=== PATIENT | male | born 1960 | race Caucasian/White ===

== ENCOUNTER 2023-11-03 10:35 | Inpatient (IN) | payer BC ==
[~2023-11-03] VITALS: Ht 177.8 cm; Wt 87.6 kg
[2023-11-03] VITALS (12 sets, daily range): BP systolic 94–155; BP diastolic 56–96; PULSE 60–77; RESP 12–18; TEMP 98–99.3; O2SAT 95–98
[~2023-11-03 10:35] MED LIST: IBUP-1985 PO
[2023-11-03] MEDS ORDERED: diphenhydrAMINE 25mg capsule PO PRN (10:55)
[2023-11-03] MEDS ORDERED: normal saline 1,000 ML IV SCH (10:55)
[2023-11-03] MEDS ORDERED: nitroGLYCERIN 0.4mg SUBLingual tab SL PRN (10:55)
[2023-11-03] MEDS ORDERED: LORazepam 0.5 MG tablet PO PRN (10:55)
[2023-11-03] MEDS ORDERED: LIDOcaine 1% 30ml preserv. free vial ONE (11:18)
[2023-11-03] MEDS ORDERED: midazolam 1 mg/ML 2ml injection ONE (11:18)
[2023-11-03] MEDS ORDERED: fentaNYL/PF 50MCG/1 ML 2ML syringe ONE (11:18)
[2023-11-03] MEDS ORDERED: iohexol 350 MG/ML 50ML vial IV ONE ×2 (11:18→12:59)
[2023-11-03] MEDS ORDERED: iohexol 350MG/ML 100ml bottle IV ONE (11:18)
[2023-11-03] MEDS ORDERED: FLO0.4C PO (11:20)
[2023-11-03] MEDS ORDERED: CHOL400T8 PO (11:22)
[2023-11-03] MEDS ORDERED: ASPI-1265 PO (11:22)
[2023-11-03] MEDS ORDERED: ASCO100031 PO (11:22)
[2023-11-03 11:46] LABS: BASOPHILS % (AUTO) 0.9 % (0-1); EOSINOPHILS # (AUTO) 0.3 X10'3 (0-0.9); EOSINOPHILS % (AUTO) 5.7 % (0-6); HEMATOCRIT 41.1 % (42.0-52.0); HEMOGLOBIN 14.1 g/dl (14.0-17.9); LYMPHOCYTES # (AUTO) 1.1 X10'3 (1.1-4.8); LYMPHOCYTES % (AUTO) 19.6 % (21-51); MEAN CORPUSCULAR HEMOGLOBIN 30.4 PG (27.0-31.0); MEAN CORPUSCULAR HGB CONC 34.3 g/dL (33.0-36.5); MEAN CORPUSCULAR VOLUME 88.7 FL (78-98); MEAN PLATELET VOLUME 8.8 FL (7.4-10.4); MONOCYTES # (AUTO) 0.3 X10'3 (0-0.9); MONOCYTES % (AUTO) 5.9 % (2-12); NEUTROPHILS # (AUTO) 3.7 X10'3 (1.8-7.7); NEUTROPHILS % (AUTO) 67.9 % (42-75); PLATELET COUNT 135 X10'3 (140-440); RED BLOOD COUNT 4.64 X10'6 (4.70-6.10); RED CELL DISTRIBUTION WIDTH 14.3 % (11.5-14.5); WHITE BLOOD COUNT 5.4 X10'3 (4.5-11.0)
[2023-11-03 11:58] LABS: APTT 28 SECONDS (22-32); INR 1.1 INR
[2023-11-03 12:07] LABS: ALBUMIN 3.5 G/DL (3.4-5.0); ANION GAP 8 (8-16); BLOOD UREA NITROGEN 21 MG/DL (7-18); BUN/CREATININE RATIO 22.1 (10.0-20.0); CALCIUM 8.4 MG/DL (8.5-10.1); CHLORIDE 110 MMOL/L (99-107); CREATININE 0.95 MG/DL (0.60-1.10); GLUCOSE 85 MG/DL (70-104); POTASSIUM 3.7 MMOL/L (3.5-5.1); PRO BRAIN NATRIURETIC PEPTIDE 7043 PG/ML (0-125); SODIUM 144 MMOL/L (135-145); TOTAL CARBON DIOXIDE 26.4 MMOL/L (24-32); eCRCL 83 ML/MIN; eGFR 80 ML/MIN
[2023-11-03] MEDS ORDERED: diphenhydrAMINE 50 mg/ml inj ONE (12:34)
[2023-11-03 13:38] LABS: ISTAT HGB ART 12.6 g/dl (14.0-17.9); ISTAT Hct ART 37 %PCV (42-52); ISTAT O2 SATURATION ARTERIAL 94 % (95-98); ISTAT SOURCE ART
[2023-11-03] MEDS: sodium chloride 0.45% 1,000 ML IV SCH (14:35)
[2023-11-03] MEDS ORDERED: OXAZEpam 15mg capsule PO PRN (14:40)
[2023-11-03] MEDS ORDERED: magnesium hydroxide 30ml (MOM) UD suspension PO PRN (14:40)
[2023-11-03] MEDS ORDERED: proCHLORperazine 10 MG/2 ml inj IV PRN (14:40)
[2023-11-03] MEDS ORDERED: acetaminophen 325mg tablet PO PRN ×2 (14:40)
[2023-11-03] MEDS ORDERED: HYDROcodone/acetaminophen 10/325mg tab PO PRN ×2 (14:40→14:45)
[2023-11-03] MEDS ORDERED: ondansetron/PF 4mg/2ml inj IV PRN (14:45)
[2023-11-03] MEDS ORDERED: HYDROcodone/acetaminophen 5mg/325mg tablet PO PRN (14:45)
[2023-11-03] MEDS: aspirin 81mg tab.chew PO ONE (15:02)
[2023-11-03] MEDS: cyclobenzaprine 10mg tablet PO PRN (15:02)
[2023-11-03 15:17] LABS: ISTAT HGB MIX 12.6 g/dl (14.0-17.9); ISTAT Hct MIX 37 %PCV (42-52); ISTAT O2 SATURATION MIX VENOUS 63 % (60-80); ISTAT SOURCE VEN
[2023-11-03] MEDS: HYDROcodone/acetaminophen 10/325mg tab PO PRN (19:15)
[2023-11-03] MEDS: docusate sod 100mg capsule PO SCH (19:17)
[2023-11-04] VITALS (7 sets, daily range): BP systolic 96–113; BP diastolic 62–79; PULSE 64–68; RESP 11–17; TEMP 96.5–98.6; O2SAT 93–100
[2023-11-04] MEDS: aspirin 81mg tab.chew PO SCH (07:50)
[2023-11-04 07:54] LABS: CHOL/HDL RATIO 3.5 (0.00-4.99); CHOLESTEROL 156 MG/DL (0-200); HDL CHOLESTEROL 45 MG/DL (35-60); LDL CHOLESTEROL 103 MG/DL (50-100); TRIGLYCERIDES 66 MG/DL (20-135)
[2023-11-04] MEDS ORDERED: albumin (human) 25% 100 ML IV solution IV ONE (08:00)
[2023-11-04 12:49] LABS: APTT 26 SECONDS (22-32); INR 1.1 INR; PROTHROMBIN TIME 11.5 SECONDS (9.0-12.0)
[2023-11-04 16:21] LABS: ABG BASE EXCESS 3.8 mmol/L (-2.0-2.0); ABG HCO3 26.6 mmol/L (22.0-26.0); ABG OXYGEN SATURATION 96.1 % (94-97); ABG PCO2 (T) 34.6 mmHg (35.0-48.0); ABG PH (T) 7.504 (7.340-7.440); ABG PO2 (T) 75.6 mmHg (75.0-100.0); ALLEN'S TEST POSITIVE; FCOHb 0.9 % (0.0-3.9); FHHb 3.9 % (0.0-5.0); FMetHb 0.3 % (0.0-1.5); FO2Hb 94.9 % (94-97); MODE ROOM AIR; TOTAL HEMOGLOBIN 14.5 G/dl (14.0-17.9)
[2023-11-05] VITALS (8 sets, daily range): BP systolic 103–130; BP diastolic 59–76; PULSE 64–81; RESP 14–18; TEMP 97.4–98.5; O2SAT 95–97
[2023-11-06] VITALS (15 sets, daily range): BP systolic 74–140; BP diastolic 34–83; PULSE 60–90; RESP 10–18; TEMP 97.3–97.8; O2SAT 94–99
[2023-11-06] MEDS: cefazolin/dext.iso 2gm/50ml 50 ML IV ONE (05:30)
[2023-11-06] MEDS ORDERED: Insulin Reg/NS 100units/100mL 100 ML IV SCH (05:30)
[2023-11-06] MEDS: MESSAGE TO PHARMACY IJ ONE (05:30)
[2023-11-06] MEDS ORDERED: insulin glargine (Lantus) pen - multi-dose SQ PRN ×2 (05:30→16:25)
[2023-11-06] MEDS ORDERED: dextrose 50%-water 50ml dispensing syringe IV PRN ×2 (05:30→16:25)
[2023-11-06] MEDS: MESSAGE TO NURSING PO ONE ×4 (05:30)
[2023-11-06 05:36] LABS: HEMOGLOBIN 13.5 g/dl (14.0-17.9); RED CELL DISTRIBUTION WIDTH 14.4 % (11.5-14.5); WHITE BLOOD COUNT 5.6 X10'3 (4.5-11.0)
[2023-11-06 05:40] LABS: BASOPHILS % (AUTO) 0.7 % (0-1); EOSINOPHILS # (AUTO) 0.4 X10'3 (0-0.9); EOSINOPHILS % (AUTO) 6.6 % (0-6); HEMATOCRIT 39.1 % (42.0-52.0); LYMPHOCYTES # (AUTO) 1.3 X10'3 (1.1-4.8); LYMPHOCYTES % (AUTO) 23.4 % (21-51); MEAN CORPUSCULAR HEMOGLOBIN 30.7 PG (27.0-31.0); MEAN CORPUSCULAR HGB CONC 34.6 g/dL (33.0-36.5); MEAN CORPUSCULAR VOLUME 88.7 FL (78-98); MEAN PLATELET VOLUME 9.3 FL (7.4-10.4); MONOCYTES # (AUTO) 0.4 X10'3 (0-0.9); MONOCYTES % (AUTO) 7.7 % (2-12); NEUTROPHILS # (AUTO) 3.5 X10'3 (1.8-7.7); NEUTROPHILS % (AUTO) 61.6 % (42-75); PLATELET COUNT 124 X10'3 (140-440)
[2023-11-06 05:47] LABS: PROTHROMBIN TIME 11.1 SECONDS (9.0-12.0)
[2023-11-06 05:54] LABS: ALBUMIN 3.3 G/DL (3.4-5.0); ANION GAP 9 (8-16); BLOOD UREA NITROGEN 23 MG/DL (7-18); BUN/CREATININE RATIO 22.8 (10.0-20.0); CALCIUM 8.5 MG/DL (8.5-10.1); CHLORIDE 109 MMOL/L (99-107); CREATININE 1.01 MG/DL (0.60-1.10); GLUCOSE 91 MG/DL (70-104); POTASSIUM 3.9 MMOL/L (3.5-5.1); SODIUM 144 MMOL/L (135-145); TOTAL CARBON DIOXIDE 25.6 MMOL/L (24-32); eCRCL 78 ML/MIN; eGFR 75 ML/MIN
[2023-11-06] MEDS: gabapentin 400mg capsule PO ONE (08:31)
[2023-11-06] MEDS: mupirocin 2% nasal ointment 1gm UD NS SCH ×3 (09:13→20:07)
[2023-11-06] MEDS: famotidine 20mg tablet PO ONE (10:30)
[2023-11-06] MEDS ORDERED: vancomycin 1,000mg inj ONE (11:03)
[2023-11-06] MEDS ORDERED: heparin 10,000 units/1 ML INJ ONE (11:03)
[2023-11-06] MEDS ORDERED: ceFAZolin 1000mg inj ONE (11:03)
[2023-11-06] MEDS ORDERED: epiNEPHrine 1 mg/ml inj ONE (11:03)
[2023-11-06] MEDS ORDERED: BUPIVAcaine 0.5% inj/PF 30 ML ONE (11:04)
[2023-11-06] MEDS ORDERED: SUfentanil 50mcg/ml 1ml amp IV ONE (11:37)
[2023-11-06] MEDS ORDERED: MIDAZolam 1 MG/ML 5ML VIAL ONE (11:37)
[2023-11-06] MEDS: LORazepam 2 mg/ml vial IV ONE (12:18)
[2023-11-06] MEDS ORDERED: propofol inj 20 ML IV ONE (12:22)
[2023-11-06] MEDS ORDERED: rocuronium 10mg/ml inj IV ONE ×3 (12:23)
[2023-11-06] MEDS ORDERED: sevoflurane 250ml liquid IH ONE (12:24)
[2023-11-06] MEDS: vancomycin 1,000mg inj IVT ONE (13:00)
[2023-11-06 13:13] LABS: ABG BASE EXCESS -0.8 mmol/L (-2.0-2.0); ABG HCO3 24.1 mmol/L (22.0-26.0); ABG OXYGEN SATURATION 98.8 % (94-97); ABG PCO2 40.5 mmHg (35.0-48.0); ABG PH 7.392 (7.340-7.440); ABG PO2 154.2 mmHg (75.0-100.0); CL (ABG) 107 mmol/L (99-107); FCOHb 0.1 % (0.0-3.9); FHHb 1.2 % (0.0-5.0); FMetHb 0.3 % (0.0-1.5); FO2Hb 98.4 % (94-97); GLUCOSE (ABG) 92 mg/dl (70-104); IONIZED CA (ABG) 1.12 mmol/L (1.10-1.30); K (ABG) 3.9 mmol/L (3.5-5.1); TOTAL HEMOGLOBIN 13.9 G/dl (14.0-17.9)
[2023-11-06 14:14] LABS: ABG BASE EXCESS -0.8 mmol/L (-2.0-2.0); ABG OXYGEN SATURATION 98.8 % (94-97); ABG PCO2 40.3 mmHg (35.0-48.0); ABG PH 7.393 (7.340-7.440); ABG PO2 228.6 mmHg (75.0-100.0); CL (ABG) 104 mmol/L (99-107); FCOHb 0.3 % (0.0-3.9); FHHb 1.2 % (0.0-5.0); FMetHb 0.3 % (0.0-1.5); FO2Hb 98.2 % (94-97); GLUCOSE (ABG) 96 mg/dl (70-104); K (ABG) 4.8 mmol/L (3.5-5.1); TOTAL HEMOGLOBIN 10.1 G/dl (14.0-17.9)
[2023-11-06 14:45] LABS: ABG BASE EXCESS VENOUS -2.1 mmol/L (-2.0 - 2.0); ABG HCO3 VENOUS 22.5 mmol/L (21.0-28.0); ABG OXYGEN SATURATION VENOUS 89.3 % (75 - 99 %); ABG PCO2 VENOUS 38.1 mmHg (41.0-54.0); ABG PO2 VENOUS 56.3 mmHg (25.0-35.0); CL (ABG) 105 mmol/L (99-107); FCOHb VENOUS 0.3 %; FHHb VENOUS 10.6 %; FMetHb VENOUS 0.3 % (0.0 - 0.5); FO2Hb VENOUS 88.8 %; GLUCOSE (ABG) 116 mg/dl (70-104); IONIZED CA (ABG) 1.02 mmol/L (1.10-1.30)
[2023-11-06 15:23] LABS: ABG BASE EXCESS 0.7 mmol/L (-2.0-2.0); ABG OXYGEN SATURATION 98.1 % (94-97); ABG PH 7.425 (7.340-7.440); ABG PO2 136.6 mmHg (75.0-100.0); CL (ABG) 104 mmol/L (99-107); FCOHb 0.2 % (0.0-3.9); FHHb 1.9 % (0.0-5.0); FMetHb 0.3 % (0.0-1.5); FO2Hb 97.6 % (94-97); GLUCOSE (ABG) 183 mg/dl (70-104); IONIZED CA (ABG) 1.12 mmol/L (1.10-1.30); K (ABG) 4.1 mmol/L (3.5-5.1); TOTAL HEMOGLOBIN 10.1 G/dl (14.0-17.9)
[2023-11-06 15:55] LABS: ABG BASE EXCESS VENOUS -2.8 mmol/L (-2.0 - 2.0); ABG HCO3 VENOUS 22.4 mmol/L (21.0-28.0); ABG OXYGEN SATURATION VENOUS 79.5 % (75 - 99 %); ABG PCO2 VENOUS 40.5 mmHg (41.0-54.0); ABG PH (VENOUS) 7.361 (7.310-7.450); ABG PO2 VENOUS 44.5 mmHg (25.0-35.0); CL (ABG) 104 mmol/L (99-107); FCOHb VENOUS 0.3 %; FHHb VENOUS 20.4 %; FMetHb VENOUS 0.1 % (0.0 - 0.5); FO2Hb VENOUS 79.2 %; GLUCOSE (ABG) 151 mg/dl (70-104); IONIZED CA (ABG) 1.15 mmol/L (1.10-1.30); K (ABG) 3.9 mmol/L (3.5-5.1)
[2023-11-06 15:58] LABS: ACTIVATED CLOTTING TIME 120 SEC (101-148)
[2023-11-06] MEDS ORDERED: sodium phosphate inj. 30 MMOL in dextrose 5%-water 250 ML IV PRN (16:25)
[2023-11-06] MEDS ORDERED: Neutra Phos packet PO PRN (16:25)
[2023-11-06] MEDS ORDERED: niCARDipine-NS 40mg/200ml IVPB 200 ML IV PRN (16:25)
[2023-11-06] MEDS ORDERED: magnesium hydroxide 30ml (MOM) UD suspension PO PRN (16:25)
[2023-11-06] MEDS ORDERED: ondansetron/PF 4mg/2ml inj IV PRN (16:25)
[2023-11-06] MEDS ORDERED: acetaminophen 325mg tablet PO PRN (16:25)
[2023-11-06] MEDS: Insulin Reg/NS 100units/100mL 100 ML IV SCH (16:25)
[2023-11-06] MEDS ORDERED: metoclopramide 5 mg/ml inj IV PRN (16:25)
[2023-11-06] MEDS ORDERED: potassium Cl 40MEQ/1/2NS 520ml 520 ML IV PRN (16:25)
[2023-11-06] MEDS ORDERED: potassium Cl 20 mEq SR tablet PO PRN (16:25)
[2023-11-06] MEDS ORDERED: bisacodyl 10mg suppository rectal RC PRN (16:25)
[2023-11-06] MEDS ORDERED: potassium CL 10mEq/100ml bag 100 ML IV PRN (16:25)
[2023-11-06] MEDS ORDERED: potassium Cl 40MEQ/270ML bag 250 ML IV PRN (16:25)
[2023-11-06] MEDS: nitroGLYCERIN-Tridil 50MG/D5W 250 ML IV SCH (16:25)
[2023-11-06] MEDS ORDERED: mineral oil 133ml enema RC PRN (16:25)
[2023-11-06] MEDS ORDERED: albumin (Human) 5% 250ml 250 ML IV ONE (16:33)
[2023-11-06 16:57] LABS: ABG BASE EXCESS -1.2 mmol/L (-2.0-2.0); ABG HCO3 24.3 mmol/L (22.0-26.0); ABG PCO2 (T) 40.8 mmHg (35.0-48.0); ABG PH (T) 7.385 (7.340-7.440); FCOHb 0.3 % (0.0-3.9); FMetHb 0.3 % (0.0-1.5); FO2Hb 97.4 % (94-97); MODE SIMV-VC; PATIENT TEMPERATURE 35.4; PEEP 5 cm H2O; RESPIRATORY RATE 12 b/min; TIDAL VOLUME 500 mL; TOTAL HEMOGLOBIN 10.9 G/dl (14.0-17.9)
[2023-11-06] MEDS: sodium chloride 0.45% 1,000 ML IV SCH (17:15)
[2023-11-06] MEDS: albumin (Human) 5% 250ml 250 ML IV PRN (17:20)
[2023-11-06 17:27] LABS: BASOPHILS # (AUTO) 0.1 X10'3 (0-0.2); BASOPHILS % (AUTO) 0.8 % (0-1); EOSINOPHILS # (AUTO) 0.2 X10'3 (0-0.9); HEMATOCRIT 30.1 % (42.0-52.0); HEMOGLOBIN 10.3 g/dl (14.0-17.9); LYMPHOCYTES # (AUTO) 0.5 X10'3 (1.1-4.8); LYMPHOCYTES % (AUTO) 6.2 % (21-51); MEAN CORPUSCULAR HEMOGLOBIN 30.5 PG (27.0-31.0); MEAN CORPUSCULAR HGB CONC 34.3 g/dL (33.0-36.5); MEAN CORPUSCULAR VOLUME 88.8 FL (78-98); MEAN PLATELET VOLUME 8.2 FL (7.4-10.4); MONOCYTES # (AUTO) 0.2 X10'3 (0-0.9); MONOCYTES % (AUTO) 2.2 % (2-12); NEUTROPHILS # (AUTO) 6.9 X10'3 (1.8-7.7); NEUTROPHILS % (AUTO) 88.8 % (42-75); PLATELET COUNT 108 X10'3 (140-440); RED BLOOD COUNT 3.38 X10'6 (4.70-6.10); RED CELL DISTRIBUTION WIDTH 14.4 % (11.5-14.5); WHITE BLOOD COUNT 7.8 X10'3 (4.5-11.0)
[2023-11-06 17:43] LABS: ALANINE AMINOTRANSFERASE 17 U/L (12-78); ALBUMIN 2.6 G/DL (3.4-5.0); ALBUMIN/GLOBULIN RATIO 1.4 (1.1-1.5); ALKALINE PHOSPHATASE 35 IU/L (46-116); ANION GAP 12 (8-16); ASPARTATE AMINO TRANSFERASE 27 U/L (10-37); BILIRUBIN,TOTAL 1.2 MG/DL (0.1-1.0); BLOOD UREA NITROGEN 17 MG/DL (7-18); BUN/CREATININE RATIO 18.5 (10.0-20.0); CALCIUM 8.2 MG/DL (8.5-10.1); CHLORIDE 109 MMOL/L (99-107); CREATININE 0.92 MG/DL (0.60-1.10); GLUCOSE 136 MG/DL (70-104); PHOSPHORUS 2.6 MG/DL (2.3-4.5); POTASSIUM 3.9 MMOL/L (3.5-5.1); SODIUM 144 MMOL/L (135-145); TOTAL CARBON DIOXIDE 23.5 MMOL/L (24-32); TOTAL PROTEIN 4.4 G/DL (6.4-8.2); eCRCL 86 ML/MIN; eGFR 83 ML/MIN
[2023-11-06 17:48] LABS: APTT 27 SECONDS (22-32); FIBRINOGEN 160 MG/DL (177-424); INR 1.3 INR; PROTHROMBIN TIME 13.3 SECONDS (9.0-12.0)
[2023-11-06] MEDS: potassium Cl 20mEq/100mL bag 100 ML IV PRN (18:48)
[2023-11-06] MEDS: morphine 4 MG/ML inj SYRINge IV PRN (18:49)
[2023-11-06] MEDS: HYDROcodone/acetaminophen 10/325mg tab PO PRN (18:55)
[2023-11-06] MEDS: albumin (Human) 5% 250ml 250 ML IV ONE ×2 (19:21→19:35)
[2023-11-06] MEDS: NORepinephrine 8mg/ 250ml NS 250 ML IV SCH ×2 (20:02→20:03)
[2023-11-06] MEDS: NORepinephrine 8mg/ 250ml NS 250 ML IV ONE (20:03)
[2023-11-06] MEDS: vancomycin/NS 1 GM ADD-VANTAGE 250 ML IV SCH (20:07)
[2023-11-06] MEDS: atorvastatin 10mg tablet PO SCH (20:08)
[2023-11-06] MEDS: sennosides/docusate sodium tablet PO SCH (20:08)
[2023-11-06] MEDS: ketorolac tromethamine 15mg/ml inj. IV SCH (20:08)
[2023-11-06 21:16] LABS: ABG BASE EXCESS -4.3 mmol/L (-2.0-2.0); ABG HCO3 20.4 mmol/L (22.0-26.0); ABG OXYGEN SATURATION 95.7 % (94-97); ABG PH (T) 7.391 (7.340-7.440); ABG PO2 (T) 76.5 mmHg (75.0-100.0); FCOHb 0.1 % (0.0-3.9); FHHb 4.3 % (0.0-5.0); FMetHb 0.3 % (0.0-1.5); FO2Hb 95.3 % (94-97); MODE VENT - CPAP; PATIENT TEMPERATURE 35.7; PEEP 5 cm H2O; TOTAL HEMOGLOBIN 9.5 G/dl (14.0-17.9)
[2023-11-06 22:30] LABS: BASOPHILS % (AUTO) 0.1 % (0-1); EOSINOPHILS % (AUTO) 0.1 % (0-6); HEMATOCRIT 25.9 % (42.0-52.0); LYMPHOCYTES # (AUTO) 0.2 X10'3 (1.1-4.8); LYMPHOCYTES % (AUTO) 2.3 % (21-51); MEAN CORPUSCULAR HEMOGLOBIN 30.7 PG (27.0-31.0); MEAN CORPUSCULAR HGB CONC 34.6 g/dL (33.0-36.5); MEAN CORPUSCULAR VOLUME 88.7 FL (78-98); MONOCYTES # (AUTO) 0.1 X10'3 (0-0.9); MONOCYTES % (AUTO) 1.1 % (2-12); NEUTROPHILS % (AUTO) 96.4 % (42-75); PLATELET COUNT 143 X10'3 (140-440); RED BLOOD COUNT 2.92 X10'6 (4.70-6.10); RED CELL DISTRIBUTION WIDTH 14.5 % (11.5-14.5); WHITE BLOOD COUNT 10.4 X10'3 (4.5-11.0)
[2023-11-06 22:49] LABS: ALANINE AMINOTRANSFERASE 15 U/L (12-78); ALBUMIN 3.6 G/DL (3.4-5.0); ALBUMIN/GLOBULIN RATIO 2.1 (1.1-1.5); ALKALINE PHOSPHATASE 30 IU/L (46-116); ANION GAP 7 (8-16); ASPARTATE AMINO TRANSFERASE 21 U/L (10-37); BILIRUBIN,TOTAL 1.6 MG/DL (0.1-1.0); BLOOD UREA NITROGEN 20 MG/DL (7-18); BUN/CREATININE RATIO 15.9 (10.0-20.0); CALCIUM 8.1 MG/DL (8.5-10.1); CHLORIDE 111 MMOL/L (99-107); CREATININE 1.26 MG/DL (0.60-1.10); GLUCOSE 160 MG/DL (70-104); MAGNESIUM 2.5 MG/DL (1.5-2.4); PHOSPHORUS 2.5 MG/DL (2.3-4.5); POTASSIUM 3.6 MMOL/L (3.5-5.1); SODIUM 146 MMOL/L (135-145); TOTAL CARBON DIOXIDE 28.1 MMOL/L (24-32); TOTAL PROTEIN 5.3 G/DL (6.4-8.2); eCRCL 63 ML/MIN; eGFR 58 ML/MIN
[2023-11-07] VITALS (31 sets, daily range): BP systolic 85–168; BP diastolic 43–146; PULSE 69–92; RESP 11–20; O2SAT 92–100
[2023-11-07] MEDS: ceFAZolin/D5W- 1GM premix 50 ML IV SCH (00:11)
[2023-11-07] MEDS: HYDROcodone/acetaminophen 10/325mg tab PO PRN (02:09)
[2023-11-07 03:47] LABS: ALANINE AMINOTRANSFERASE 15 U/L (12-78); ALBUMIN 3.5 G/DL (3.4-5.0); ALBUMIN/GLOBULIN RATIO 1.9 (1.1-1.5); ALKALINE PHOSPHATASE 30 IU/L (46-116); ANION GAP 7 (8-16); ASPARTATE AMINO TRANSFERASE 24 U/L (10-37); BILIRUBIN,TOTAL 0.9 MG/DL (0.1-1.0); BLOOD UREA NITROGEN 21 MG/DL (7-18); BUN/CREATININE RATIO 17.6 (10.0-20.0); CHLORIDE 112 MMOL/L (99-107); CREATININE 1.19 MG/DL (0.60-1.10); GLUCOSE 122 MG/DL (70-104); MAGNESIUM 2.2 MG/DL (1.5-2.4); PHOSPHORUS 1.9 MG/DL (2.3-4.5); POTASSIUM 4.9 MMOL/L (3.5-5.1); SODIUM 145 MMOL/L (135-145); TOTAL CARBON DIOXIDE 26.5 MMOL/L (24-32); TOTAL PROTEIN 5.3 G/DL (6.4-8.2); eCRCL 66 ML/MIN; eGFR 62 ML/MIN
[2023-11-07] MEDS: magnesium 4gm in 100ml NS 100 ML IV PRN (03:53)
[2023-11-07 04:00] LABS: BASOPHILS % (AUTO) 0.5 % (0-1); EOSINOPHILS % (AUTO) 0.1 % (0-6); HEMATOCRIT 24.5 % (42.0-52.0); HEMOGLOBIN 8.5 g/dl (14.0-17.9); LYMPHOCYTES # (AUTO) 0.2 X10'3 (1.1-4.8); LYMPHOCYTES % (AUTO) 2.3 % (21-51); MEAN CORPUSCULAR HEMOGLOBIN 30.6 PG (27.0-31.0); MEAN CORPUSCULAR HGB CONC 34.5 g/dL (33.0-36.5); MEAN CORPUSCULAR VOLUME 88.7 FL (78-98); MEAN PLATELET VOLUME 9.1 FL (7.4-10.4); MONOCYTES # (AUTO) 0.2 X10'3 (0-0.9); MONOCYTES % (AUTO) 2.4 % (2-12); NEUTROPHILS # (AUTO) 8.6 X10'3 (1.8-7.7); NEUTROPHILS % (AUTO) 94.7 % (42-75); PLATELET COUNT 133 X10'3 (140-440); RED BLOOD COUNT 2.77 X10'6 (4.70-6.10); RED CELL DISTRIBUTION WIDTH 14.3 % (11.5-14.5); WHITE BLOOD COUNT 9.1 X10'3 (4.5-11.0)
[2023-11-07] MEDS: sodium phosphate inj. 15 MMOL in dextrose 5%-water 250 ML IV PRN (05:23)
[2023-11-07] MEDS: aspirin 81mg tab.chew PO SCH (07:35)
[2023-11-07 07:37] LABS: HEMOGLOBIN A1C 5.3 % (4.5-6.2)
[2023-11-07] MEDS: metoprolol tartrate 12.5mg (1/2 tablet) PO SCH (08:00)
[2023-11-07] MEDS ORDERED: ASPI-611 PO (12:45)
[2023-11-07] MEDS: morphine 4 MG/ML inj SYRINge IV PRN (15:27)
[2023-11-07] MEDS: heparin, porcine 5000 units/ml vial SQ SCH (15:36)
[2023-11-07] MEDS: morphine 2 MG/ML inj. syringe IV PRN (20:05)
[2023-11-07 21:32] LABS: HEMATOCRIT 24.5 % (42.0-52.0); HEMOGLOBIN 8.2 g/dl (14.0-17.9); MEAN CORPUSCULAR HEMOGLOBIN 29.9 PG (27.0-31.0); MEAN CORPUSCULAR HGB CONC 33.4 g/dL (33.0-36.5); MEAN CORPUSCULAR VOLUME 89.4 FL (78-98); MEAN PLATELET VOLUME 9.3 FL (7.4-10.4); PLATELET COUNT 123 X10'3 (140-440); RED BLOOD COUNT 2.74 X10'6 (4.70-6.10); RED CELL DISTRIBUTION WIDTH 14.6 % (11.5-14.5); WHITE BLOOD COUNT 16.1 X10'3 (4.5-11.0)
[2023-11-07 21:33] LABS: ALBUMIN 3.9 G/DL (3.4-5.0); ANION GAP 7 (8-16); BLOOD UREA NITROGEN 32 MG/DL (7-18); BUN/CREATININE RATIO 19.8 (10.0-20.0); CALCIUM 8.3 MG/DL (8.5-10.1); CHLORIDE 108 MMOL/L (99-107); CREATININE 1.62 MG/DL (0.60-1.10); GLUCOSE 126 MG/DL (70-104); POTASSIUM 5.2 MMOL/L (3.5-5.1); SODIUM 141 MMOL/L (135-145); TOTAL CARBON DIOXIDE 25.8 MMOL/L (24-32); eCRCL 49 ML/MIN; eGFR 43 ML/MIN
[2023-11-07] MEDS: morphine 10mg/ml inj. IV PRN (23:36)
[2023-11-08] VITALS (42 sets, daily range): BP systolic 100–153; BP diastolic 42–91; PULSE 8–98; RESP 9–19; O2SAT 85–100
[2023-11-08 01:02] LABS: BASOPHILS # (AUTO) 0.1 X10'3 (0-0.2); BASOPHILS % (AUTO) 0.4 % (0-1); EOSINOPHILS % (AUTO) 0 % (0-6); HEMATOCRIT 23.9 % (42.0-52.0); LYMPHOCYTES # (AUTO) 0.8 X10'3 (1.1-4.8); LYMPHOCYTES % (AUTO) 4.6 % (21-51); MEAN CORPUSCULAR HEMOGLOBIN 30.1 PG (27.0-31.0); MEAN CORPUSCULAR HGB CONC 33.3 g/dL (33.0-36.5); MEAN CORPUSCULAR VOLUME 90.2 FL (78-98); MEAN PLATELET VOLUME 9.4 FL (7.4-10.4); MONOCYTES % (AUTO) 5.8 % (2-12); NEUTROPHILS # (AUTO) 15.2 X10'3 (1.8-7.7); NEUTROPHILS % (AUTO) 89.2 % (42-75); PLATELET COUNT 119 X10'3 (140-440); RED BLOOD COUNT 2.65 X10'6 (4.70-6.10); RED CELL DISTRIBUTION WIDTH 14.8 % (11.5-14.5); WHITE BLOOD COUNT 17.1 X10'3 (4.5-11.0)
[2023-11-08 01:17] LABS: ALBUMIN 3.7 G/DL (3.4-5.0); ANION GAP 9 (8-16); BLOOD UREA NITROGEN 32 MG/DL (7-18); BUN/CREATININE RATIO 23.5 (10.0-20.0); CALCIUM 8.2 MG/DL (8.5-10.1); CHLORIDE 109 MMOL/L (99-107); CREATININE 1.36 MG/DL (0.60-1.10); GLUCOSE 124 MG/DL (70-104); MAGNESIUM 2.6 MG/DL (1.5-2.4); PHOSPHORUS 4.1 MG/DL (2.3-4.5); POTASSIUM 5.5 MMOL/L (3.5-5.1); SODIUM 143 MMOL/L (135-145); TOTAL CARBON DIOXIDE 25.4 MMOL/L (24-32); eCRCL 58 ML/MIN; eGFR 53 ML/MIN
[2023-11-08 06:50] LABS: ACT @ 1.70 U 286 SEC (193-297); ACT @ 2.84 U 418 SEC (260-420); BASELINE ACT 144 SEC (101-148); PATIENT WEIGHT 87.0k KG
[2023-11-08] MEDS: pantoprazole 40mg Tablet.DR PO SCH (07:34)
[2023-11-08] MEDS: furosemide 20 MG/2 ML vial IV ONE (08:08)
[2023-11-08] MEDS: furosemide 40mg/4ml inj IV ONE (09:15)
[2023-11-09] VITALS (19 sets, daily range): BP systolic 87–123; BP diastolic 48–82; PULSE 72–100; RESP 9–24; TEMP 97.3–98.7; O2SAT 92–100
[2023-11-09 02:16] LABS: BASOPHILS % (AUTO) 0.3 % (0-1); EOSINOPHILS % (AUTO) 0.4 % (0-6); HEMATOCRIT 24.1 % (42.0-52.0); HEMOGLOBIN 8.3 g/dl (14.0-17.9); LYMPHOCYTES # (AUTO) 0.8 X10'3 (1.1-4.8); LYMPHOCYTES % (AUTO) 7.4 % (21-51); MEAN CORPUSCULAR HEMOGLOBIN 31.1 PG (27.0-31.0); MEAN CORPUSCULAR HGB CONC 34.5 g/dL (33.0-36.5); MEAN CORPUSCULAR VOLUME 90.3 FL (78-98); MEAN PLATELET VOLUME 10.2 FL (7.4-10.4); MONOCYTES # (AUTO) 0.7 X10'3 (0-0.9); MONOCYTES % (AUTO) 6.5 % (2-12); NEUTROPHILS # (AUTO) 9.2 X10'3 (1.8-7.7); NEUTROPHILS % (AUTO) 85.4 % (42-75); PLATELET COUNT 104 X10'3 (140-440); RED BLOOD COUNT 2.67 X10'6 (4.70-6.10); WHITE BLOOD COUNT 10.7 X10'3 (4.5-11.0)
[2023-11-09 02:38] LABS: ALBUMIN 3.5 G/DL (3.4-5.0); ANION GAP 11 (8-16); BLOOD UREA NITROGEN 34 MG/DL (7-18); BUN/CREATININE RATIO 32.4 (10.0-20.0); CHLORIDE 106 MMOL/L (99-107); CREATININE 1.05 MG/DL (0.60-1.10); GLUCOSE 115 MG/DL (70-104); MAGNESIUM 2.1 MG/DL (1.5-2.4); PHOSPHORUS 3.7 MG/DL (2.3-4.5); POTASSIUM 4.2 MMOL/L (3.5-5.1); SODIUM 142 MMOL/L (135-145); TOTAL CARBON DIOXIDE 24.9 MMOL/L (24-32); eCRCL 75 ML/MIN; eGFR 72 ML/MIN
[2023-11-09] MEDS: magnesium 2GM in 50ml NS 50 ML IV PRN (04:13)
[2023-11-09] MEDS ORDERED: potassium CL 10mEq/100ml bag 100 ML IV PRN (08:15)
[2023-11-09] MEDS ORDERED: potassium Cl 40MEQ/1/2NS 520ml 520 ML IV PRN (08:15)
[2023-11-09] MEDS ORDERED: magnesium 2GM in 50ml NS 50 ML IV PRN (08:15)
[2023-11-09] MEDS ORDERED: potassium Cl 20 mEq SR tablet PO PRN ×2 (08:15)
[2023-11-09] MEDS ORDERED: potassium Cl 20mEq/100mL bag 100 ML IV PRN (08:15)
[2023-11-09] MEDS ORDERED: magnesium 4gm in 100ml NS 100 ML IV PRN (08:15)
[2023-11-09] MEDS ORDERED: potassium Cl 40MEQ/270ML bag 250 ML IV PRN (08:15)
[2023-11-09] MEDS: metoprolol tartrate 12.5mg (1/2 tablet) PO SCH (09:00)
[2023-11-09] MEDS: furosemide 40mg/4ml inj IV ONE (11:10)
[2023-11-09] MEDS: magnesium Cl slow-release 64mg tablet PO SCH (19:25)
[2023-11-09] MEDS: acetaminophen 325mg tablet PO PRN (23:22)
[2023-11-10] VITALS (7 sets, daily range): BP systolic 99–121; BP diastolic 58–70; PULSE 74–90; RESP 11–17; TEMP 97.4–100.3; O2SAT 94–97
[2023-11-10 06:18] LABS: BASOPHILS % (AUTO) 0.2 % (0-1); EOSINOPHILS # (AUTO) 0.2 X10'3 (0-0.9); EOSINOPHILS % (AUTO) 1.8 % (0-6); HEMATOCRIT 25.5 % (42.0-52.0); HEMOGLOBIN 8.6 g/dl (14.0-17.9); LYMPHOCYTES # (AUTO) 1.1 X10'3 (1.1-4.8); LYMPHOCYTES % (AUTO) 12.5 % (21-51); MEAN CORPUSCULAR HEMOGLOBIN 30.7 PG (27.0-31.0); MEAN CORPUSCULAR HGB CONC 33.9 g/dL (33.0-36.5); MEAN CORPUSCULAR VOLUME 90.5 FL (78-98); MEAN PLATELET VOLUME 10.4 FL (7.4-10.4); MONOCYTES # (AUTO) 0.6 X10'3 (0-0.9); MONOCYTES % (AUTO) 6.5 % (2-12); NEUTROPHILS # (AUTO) 7.1 X10'3 (1.8-7.7); PLATELET COUNT 122 X10'3 (140-440); RED BLOOD COUNT 2.82 X10'6 (4.70-6.10); RED CELL DISTRIBUTION WIDTH 14.2 % (11.5-14.5)
[2023-11-10 06:22] LABS: ALBUMIN 3.2 G/DL (3.4-5.0); ANION GAP 9 (8-16); BLOOD UREA NITROGEN 26 MG/DL (7-18); BUN/CREATININE RATIO 26.3 (10.0-20.0); CALCIUM 8.4 MG/DL (8.5-10.1); CHLORIDE 108 MMOL/L (99-107); CREATININE 0.99 MG/DL (0.60-1.10); GLUCOSE 95 MG/DL (70-104); MAGNESIUM 2.1 MG/DL (1.5-2.4); SODIUM 144 MMOL/L (135-145); TOTAL CARBON DIOXIDE 27.2 MMOL/L (24-32); eCRCL 79 ML/MIN; eGFR 76 ML/MIN
[2023-11-10] MEDS: JUVEN Smoothie Arginine/Glut./Ca2+Bmb (Juven 19.3pkt) 240ml cup PO SCH (07:30)
[2023-11-10] MEDS ORDERED: ATOR10TA PO (09:48)
[2023-11-10] MEDS ORDERED: HYDR-3972 PO (09:48)
[2023-11-10] MEDS ORDERED: LOP12.5T PO (09:48)
== END 2023-11-10 16:30 | disposition home health service (06) | DRG 217 ==
LOC: SSTAY O 10:35 → PCU 3S 17:00 → SSTAY O 11-04 09:35 → PCU 3S 11-04 09:36 → CICU 2S 11-06 14:51 → PCU 3S 11-09 15:38
PROVIDERS: ADMIT Internal Medicine Cardiovascular Disease; ATTEND Internal Medicine Cardiovascular Disease
PROC: 4A023N8 Measurement of Cardiac Sampling and Pressure, Bilateral, Percutaneous Approach (ICD-10-PCS; 2023-11-03)
PROC: B2111ZZ Fluoroscopy of Multiple Coronary Arteries using Low Osmolar Contrast (ICD-10-PCS; 2023-11-03)
PROC: B2151ZZ Fluoroscopy of Left Heart using Low Osmolar Contrast (ICD-10-PCS; 2023-11-03)
PROC: B4101ZZ Fluoroscopy of Abdominal Aorta using Low Osmolar Contrast (ICD-10-PCS; 2023-11-03)
PROC: B41F1ZZ Fluoroscopy of Right Lower Extremity Arteries using Low Osmolar Contrast (ICD-10-PCS; 2023-11-03)
PROC: 02100Z9 Bypass Coronary Artery, One Artery from Left Internal Mammary, Open Approach (ICD-10-PCS; 2023-11-06)
PROC: 02RX0JZ Replacement of Thoracic Aorta, Ascending/Arch with Synthetic Substitute, Open Approach (ICD-10-PCS; 2023-11-06)
PROC: 5A1221Z Performance of Cardiac Output, Continuous (ICD-10-PCS; 2023-11-06)
PROC: B24BZZ4 Ultrasonography of Heart with Aorta, Transesophageal (ICD-10-PCS; 2023-11-06)
PROC: 30233R1 Transfusion of Nonautologous Platelets into Peripheral Vein, Percutaneous Approach (ICD-10-PCS; 2023-11-06)
PROC: 02RF08Z Replacement of Aortic Valve with Zooplastic Tissue, Open Approach (ICD-10-PCS; principal; 2023-11-06 12:24)
DX: I35.0 Nonrheumatic aortic (valve) stenosis (principal); D62 Acute posthemorrhagic anemia; I25.10 Atherosclerotic heart disease of native coronary artery without angina pectoris; I71.21 Aneurysm of the ascending aorta, without rupture; E87.70 Fluid overload, unspecified; M48.02 Spinal stenosis, cervical region; Z79.82 Long term (current) use of aspirin; Z79.899 Other long term (current) drug therapy
CPT/HCPCS: 93312; 93325; 93460; 93567; Z7506; Z7508; 36415; 36430; 36600; 71045; 71046; 71250; 76376; 80048; 80053; 80061; 82330; 82435; 82803; 82947; 82948; 83036; 83735; 83880; 84100; 84132; 84295; 84484; 85014; 85018; 85025; 85027; 85347; 85384; 85610; 85730; 86885; 86900; 86901; 86920; 87070; 87081; 93005; 93880; 93970; 94010; 94760; 97116; 97161; 97530; 99152; 99153; A4333; A4615; A4618; A6213; A6258; A6449; A7000; A7048; C1751; C1768; C1769; G0378; J0171; J0690; J1200; J1644; J1815; J1885; J1940; J2060; J2150; J2250; J2270; J2274; J2704; J2720; J2930; J3010; J3370; J3475; J3480; J3490; J7030; J7040; J7050; J7060; J7120; P9035; P9045; P9047; Q9967; S0020

== ENCOUNTER 2023-11-19 20:42 | Inpatient (IN) | payer BC ==
[~2023-11-19] VITALS: Ht 177.8 cm; Wt 98.6 kg
[2023-11-19 03:58] VITALS: BP 99/64; PULSE 81; RESP 18; TEMP 98.1
[~2023-11-19 20:42] MED LIST changes: +ASPI-611 PO; +ATOR10TA PO; +FLO0.4C PO; +HYDR-3972 PO; -IBUP-1985 PO; +LOP12.5T PO
[2023-11-19 22:09] LABS: BASOPHILS # (AUTO) 0.1 X10'3 (0-0.2); BASOPHILS % (AUTO) 0.8 % (0-1); EOSINOPHILS # (AUTO) 0.4 X10'3 (0-0.9); HEMATOCRIT 29.6 % (42.0-52.0); LYMPHOCYTES # (AUTO) 1.1 X10'3 (1.1-4.8); LYMPHOCYTES % (AUTO) 13.3 % (21-51); MEAN CORPUSCULAR HEMOGLOBIN 30.2 PG (27.0-31.0); MEAN CORPUSCULAR HGB CONC 33.8 g/dL (33.0-36.5); MEAN CORPUSCULAR VOLUME 89.4 FL (78-98); MEAN PLATELET VOLUME 7.8 FL (7.4-10.4); MONOCYTES # (AUTO) 0.5 X10'3 (0-0.9); MONOCYTES % (AUTO) 6.6 % (2-12); NEUTROPHILS # (AUTO) 6.1 X10'3 (1.8-7.7); NEUTROPHILS % (AUTO) 74.3 % (42-75); PLATELET COUNT 349 X10'3 (140-440); RED BLOOD COUNT 3.31 X10'6 (4.70-6.10); RED CELL DISTRIBUTION WIDTH 14.5 % (11.5-14.5); WHITE BLOOD COUNT 8.2 X10'3 (4.5-11.0)
[2023-11-19 22:16] LABS: ALANINE AMINOTRANSFERASE 17 U/L (12-78); ALBUMIN 3.2 G/DL (3.4-5.0); ALKALINE PHOSPHATASE 84 IU/L (46-116); ANION GAP 8 (8-16); ASPARTATE AMINO TRANSFERASE 14 U/L (10-37); BILIRUBIN,TOTAL 0.6 MG/DL (0.1-1.0); BLOOD UREA NITROGEN 25 MG/DL (7-18); BUN/CREATININE RATIO 25.3 (10.0-20.0); CALCIUM 8.7 MG/DL (8.5-10.1); CHLORIDE 108 MMOL/L (99-107); CREATININE 0.99 MG/DL (0.60-1.10); GLUCOSE 104 MG/DL (70-104); POTASSIUM 3.5 MMOL/L (3.5-5.1); SODIUM 144 MMOL/L (135-145); TOTAL CARBON DIOXIDE 28.5 MMOL/L (24-32); TOTAL PROTEIN 6.3 G/DL (6.4-8.2); eCRCL 79 ML/MIN; eGFR 76 ML/MIN
[2023-11-19] MEDS ORDERED: ATOR10TA87 PO (23:50)
[2023-11-19] MEDS ORDERED: METO-467 PO (23:51)
[2023-11-20] VITALS (9 sets, daily range): BP systolic 88–114; BP diastolic 50–68; PULSE 80–82; RESP 16–22; TEMP 97.7–98.9; O2SAT 90–100
[2023-11-20] MEDS ORDERED: mag hydrox/Alum hydrox/simeth 30ml oral suspension PO PRN (01:25)
[2023-11-20] MEDS ORDERED: potassium Cl 40MEQ/1/2NS 520ml 520 ML IV PRN (01:25)
[2023-11-20] MEDS ORDERED: acetaminophen 325mg tablet PO PRN (01:25)
[2023-11-20] MEDS ORDERED: magnesium 4gm in 100ml NS 100 ML IV PRN (01:25)
[2023-11-20] MEDS ORDERED: magnesium 2GM in 50ml NS 50 ML IV PRN (01:25)
[2023-11-20] MEDS ORDERED: potassium Cl 20 mEq SR tablet PO PRN ×2 (01:25)
[2023-11-20] MEDS ORDERED: ondansetron/PF 4mg/2ml inj IV PRN (01:25)
[2023-11-20] MEDS ORDERED: magnesium Cl slow-release 64mg tablet PO PRN (01:25)
[2023-11-20] MEDS: ampicillin/sulbac 3gm/NS 100ml 100 ML IV SCH (02:00)
[2023-11-20 02:37] LABS: POTASSIUM 3.9 MMOL/L (3.5-5.1)
[2023-11-20] MEDS: furosemide 10 MG/1 ML 10ml inj IV ONE (02:40)
[2023-11-20 03:51] LABS: C-REACTIVE PROTEIN 3.01 MG/DL (0.0-0.5)
[2023-11-20] MEDS: furosemide 10 MG/1 ML 10ml inj IV SCH (07:31)
[2023-11-20] MEDS: heparin, porcine 5000 units/ml vial SQ SCH (07:33)
[2023-11-20] MEDS: metoprolol tartrate 50mg tablet PO SCH (07:33)
[2023-11-20] MEDS: K and/or MAG REPLACEMENT MC SCH (08:00)
[2023-11-20] MEDS: acetaminophen 325mg tablet PO PRN (12:27)
[2023-11-20] MEDS: atorvastatin 10mg tablet PO SCH (21:42)
[2023-11-21 02:00] VITALS: BP 96/62; PULSE 84; RESP 18; TEMP 98; O2SAT 93
[2023-11-21 06:57] LABS: BASOPHILS # (AUTO) 0.1 X10'3 (0-0.2); BASOPHILS % (AUTO) 0.9 % (0-1); EOSINOPHILS # (AUTO) 0.3 X10'3 (0-0.9); EOSINOPHILS % (AUTO) 4.3 % (0-6); HEMOGLOBIN 10.3 g/dl (14.0-17.9); LYMPHOCYTES # (AUTO) 0.8 X10'3 (1.1-4.8); LYMPHOCYTES % (AUTO) 11.6 % (21-51); MEAN CORPUSCULAR HEMOGLOBIN 29.8 PG (27.0-31.0); MEAN CORPUSCULAR HGB CONC 33.4 g/dL (33.0-36.5); MEAN CORPUSCULAR VOLUME 89.4 FL (78-98); MEAN PLATELET VOLUME 7.8 FL (7.4-10.4); MONOCYTES # (AUTO) 0.4 X10'3 (0-0.9); MONOCYTES % (AUTO) 5.9 % (2-12); NEUTROPHILS # (AUTO) 5.7 X10'3 (1.8-7.7); NEUTROPHILS % (AUTO) 77.3 % (42-75); PLATELET COUNT 354 X10'3 (140-440); RED BLOOD COUNT 3.47 X10'6 (4.70-6.10); RED CELL DISTRIBUTION WIDTH 14.5 % (11.5-14.5); WHITE BLOOD COUNT 7.3 X10'3 (4.5-11.0)
[2023-11-21 07:08] LABS: ALBUMIN 3.2 G/DL (3.4-5.0); ANION GAP 7 (8-16); BLOOD UREA NITROGEN 25 MG/DL (7-18); CALCIUM 8.6 MG/DL (8.5-10.1); CHLORIDE 105 MMOL/L (99-107); GLUCOSE 99 MG/DL (70-104); PHOSPHORUS 4.3 MG/DL (2.3-4.5); POTASSIUM 3.6 MMOL/L (3.5-5.1); SODIUM 142 MMOL/L (135-145); TOTAL CARBON DIOXIDE 30.2 MMOL/L (24-32); eCRCL 78 ML/MIN; eGFR 75 ML/MIN
[2023-11-21 08:00] VITALS: RESP 16; O2SAT 97
[2023-11-21 09:22] VITALS: BP_SYST 100; PULSE 85
[2023-11-21] MEDS: metoprolol tartrate 25mg tablet PO SCH (09:22)
[2023-11-21] MEDS ORDERED: NEOM28OI32 TP (16:56)
[2023-11-21] MEDS ORDERED: POTA-207 PO (16:56)
[2023-11-21] MEDS ORDERED: FURO20TA4 PO (16:56)
== END 2023-11-21 14:55 | disposition home health service (06) | DRG 920 ==
LOC: ER 20:43 → ED HOLD 11-20 01:28 → PCU 3S 11-20 02:45
PROVIDERS: ADMIT Surgery Surgical Critical Care; ATTEND Internal Medicine
PROC: BW251ZZ Computerized Tomography (CT Scan) of Chest, Abdomen and Pelvis using Low Osmolar Contrast (ICD-10-PCS; 2023-11-19)
PROC: 0W9B3ZZ Drainage of Left Pleural Cavity, Percutaneous Approach (ICD-10-PCS; principal; 2023-11-21)
DX: L76.34 Postprocedural seroma of skin and subcutaneous tissue following other procedure (principal); I31.39 Other pericardial effusion (noninflammatory); J91.8 Pleural effusion in other conditions classified elsewhere; L02.214 Cutaneous abscess of groin; K81.9 Cholecystitis, unspecified; J98.11 Atelectasis; T81.49XA Infection following a procedure, other surgical site, initial encounter; L76.32 Postprocedural hematoma of skin and subcutaneous tissue following other procedure; I25.10 Atherosclerotic heart disease of native coronary artery without angina pectoris; B96.89 Other specified bacterial agents as the cause of diseases classified elsewhere; Y84.0 Cardiac catheterization as the cause of abnormal reaction of the patient, or of later complication, without mention of misadventure at the time of the procedure; Y71.3 Surgical instruments, materials and cardiovascular devices (including sutures) associated with adverse incidents; Y92.89 Other specified places as the place of occurrence of the external cause; Z95.1 Presence of aortocoronary bypass graft; Z95.2 Presence of prosthetic heart valve
CPT/HCPCS: 36415; 71045; 71260; 74177; 76857; 80048; 80053; 83605; 83735; 84100; 84132; 84145; 85025; 85651; 86140; 87040; 87070; 87077; 87081; 87186; 93005; 93308; A6590; G0378; J0295; J1644; J1940; J7040

== ENCOUNTER 2023-11-23 12:04 | Outpatient (CLI) | payer BC ==
[~2023-11-23 12:04] MED LIST changes: -ASPI-611 PO; -ATOR10TA PO; +ATOR10TA87 PO; -FLO0.4C PO; +FURO20TA4 PO; -HYDR-3972 PO; -LOP12.5T PO; +METO-467 PO; +NEOM28OI32 TP; +POTA-207 PO
== END 2023-11-23 23:59 | disposition home or self-care (01) ==
LOC: RAD 12:04
PROVIDERS: ATTEND Thoracic Surgery (Cardiothoracic Vascular Surgery)
DX: J90 Pleural effusion, not elsewhere classified (principal)
CPT/HCPCS: 71046

== ENCOUNTER 2023-11-25 12:55 | Emergency (ER) | payer BC ==
[~2023-11-25] VITALS: Ht 175.3 cm; Wt 80.0 kg
[2023-11-25] MEDS: LIDOcaine 1% 30ml preserv. free vial IJ STA (14:07)
[2023-11-25] MEDS ORDERED: ketorolac trometh. 30mg/ml inj. IV ONE (15:15)
[2023-11-25] MEDS: ketorolac tromethamine 15mg/ml inj. IV ONE (15:20)
[2023-11-25] MEDS: traMADol 50MG tablet PO ONE (15:29)
[2023-11-25] MEDS: acetaminophen 1,000mg/100ml IV 100 ML IV ONE (15:33)
[2023-11-25] MEDS: mupirocin 2% ointment 22GM TP SCH (17:23)
[2023-11-25 17:55] VITALS: BP 105/71; PULSE 74; RESP 16; TEMP 98.6; O2SAT 96
== END 2023-11-25 17:58 | disposition home or self-care (01) ==
LOC: ER 12:56
DX: J90 Pleural effusion, not elsewhere classified (principal); Z79.899 Other long term (current) drug therapy
CPT/HCPCS: 32556; 71045; 71250; 93005; 96374; 99285; A6223; J0131; A6258; A6449

== ENCOUNTER → 2023-12-20 | Outpatient (CLI) | payer BC | END | disposition home or self-care (01) | LOC: RAD 12:04 | PROVIDERS: ATTEND Thoracic Surgery (Cardiothoracic Vascular Surgery) | DX: J90 Pleural effusion, not elsewhere classified (principal) | CPT/HCPCS: 71046 ==

== ENCOUNTER 2023-12-22 11:12 | Emergency (ER) | payer BC ==
[~2023-12-22] VITALS: Ht 177.8 cm; Wt 85.7 kg
[2023-12-22 11:28] VITALS: BP 133/79; PULSE 76; RESP 18; TEMP 97.8; O2SAT 98
[2023-12-22 12:59] LABS: BASOPHILS % (AUTO) 0.8 % (0-1); EOSINOPHILS # (AUTO) 0.5 X10'3 (0-0.9); EOSINOPHILS % (AUTO) 9.6 % (0-6); HEMATOCRIT 37.7 % (42.0-52.0); HEMOGLOBIN 12.1 g/dl (14.0-17.9); LYMPHOCYTES # (AUTO) 0.7 X10'3 (1.1-4.8); LYMPHOCYTES % (AUTO) 14.8 % (21-51); MEAN CORPUSCULAR HEMOGLOBIN 26.7 PG (27.0-31.0); MEAN CORPUSCULAR HGB CONC 32.1 g/dL (33.0-36.5); MEAN CORPUSCULAR VOLUME 83.2 FL (78-98); MEAN PLATELET VOLUME 8.1 FL (7.4-10.4); MONOCYTES # (AUTO) 0.3 X10'3 (0-0.9); MONOCYTES % (AUTO) 5.9 % (2-12); NEUTROPHILS # (AUTO) 3.5 X10'3 (1.8-7.7); NEUTROPHILS % (AUTO) 68.9 % (42-75); PLATELET COUNT 192 X10'3 (140-440); RED BLOOD COUNT 4.53 X10'6 (4.70-6.10); RED CELL DISTRIBUTION WIDTH 16.2 % (11.5-14.5); WHITE BLOOD COUNT 5.1 X10'3 (4.5-11.0)
[2023-12-22 13:11] LABS: APTT 27 SECONDS (22-32); INR 1.1 INR; PROTHROMBIN TIME 11.3 SECONDS (9.0-12.0)
[2023-12-22 13:22] LABS: ALANINE AMINOTRANSFERASE 21 U/L (12-78); ALBUMIN 3.5 G/DL (3.4-5.0); ALKALINE PHOSPHATASE 96 IU/L (46-116); ANION GAP 7 (8-16); ASPARTATE AMINO TRANSFERASE 13 U/L (10-37); BILIRUBIN,TOTAL 0.6 MG/DL (0.1-1.0); BLOOD UREA NITROGEN 25 MG/DL (7-18); BUN/CREATININE RATIO 24.5 (10.0-20.0); CALCIUM 8.7 MG/DL (8.5-10.1); CHLORIDE 108 MMOL/L (99-107); CREATININE 1.02 MG/DL (0.60-1.10); GLUCOSE 79 MG/DL (70-104); POTASSIUM 3.9 MMOL/L (3.5-5.1); SODIUM 145 MMOL/L (135-145); TOTAL CARBON DIOXIDE 30.1 MMOL/L (24-32); TOTAL PROTEIN 7.1 G/DL (6.4-8.2); eCRCL 77 ML/MIN; eGFR 74 ML/MIN
== END 2023-12-22 16:24 | disposition left against medical advice (07) ==
LOC: ER 11:13
DX: Z45.2 Encounter for adjustment and management of vascular access device (principal); R79.1 Abnormal coagulation profile; Z53.21 Procedure and treatment not carried out due to patient leaving prior to being seen by health care provider
CPT/HCPCS: 36415; 80053; 83605; 84145; 85025; 85610; 85730

== ENCOUNTER 2023-12-24 11:33 | Day surgery (SDC) | payer BC ==
[~2023-12-24] VITALS: Ht 177.8 cm; Wt 84.9 kg
[~2023-12-24 11:33] MED LIST changes: -POTA-207 PO
[2023-12-24 12:00] VITALS: RESP 12; O2SAT 98
[2023-12-24 12:01] VITALS: BP 152/83; PULSE 63; RESP 12; TEMP 98.2; O2SAT 98
[2023-12-24] MEDS ORDERED: FURO-149 PO (12:04)
[2023-12-24] MEDS ORDERED: Potassium PO (12:06)
[2023-12-24] MEDS ORDERED: METO-395 PO (12:08)
[2023-12-24] MEDS ORDERED: ASPI-1265 PO (12:09)
[2023-12-24] MEDS ORDERED: IBUP-2417 PO (12:11)
[2023-12-24 13:10] VITALS: BP 158/81; PULSE 69; RESP 18; O2SAT 100
[2023-12-24 13:24] VITALS: BP 157/91; PULSE 71; RESP 20; O2SAT 99
[2023-12-24 14:45] VITALS: BP 149/78; PULSE 72; RESP 12; O2SAT 97
== END 2023-12-24 15:00 | disposition home or self-care (01) ==
LOC: SSTAY O 11:33 → EDSTATUS 13:30 → SSTAY O 15:00
PROVIDERS: ATTEND Thoracic Surgery (Cardiothoracic Vascular Surgery)
DX: J90 Pleural effusion, not elsewhere classified (principal); Z95.4 Presence of other heart-valve replacement; Z95.1 Presence of aortocoronary bypass graft
CPT/HCPCS: 32556; 71045; 71250; C1729; 32557; A4421; A6258

== ENCOUNTER → 2024-01-10 | Outpatient (CLI) | payer BC ==
[~2024-01-10] MED LIST changes: +ASPI-1265 PO; +FURO-149 PO; -FURO20TA4 PO; +IBUP-2417 PO; +METO-395 PO; -METO-467 PO; +Potassium PO
== END | disposition home or self-care (01) ==
LOC: RAD 14:41
PROVIDERS: ATTEND Thoracic Surgery (Cardiothoracic Vascular Surgery)
DX: J90 Pleural effusion, not elsewhere classified (principal)
CPT/HCPCS: 71046

== ENCOUNTER 2025-04-11 05:41 | Day surgery (SDC) | payer OTHER ==
--- NOTE | 2025-04-10 14:32 | ELECTROCARDIOGRAPH REPORT ---
[facility] Test Date: 2025-04-10 Test Time: 14:30:54 Pat Name: ANGELIKA GALLARDO Department: [facility]-OP Patient ID: [id number] Room: Gender: M Food Products Tester: sarathwanOmega : 1960 Requested By: LELAND HAYNES Order Number: [id number] Reading MD: Dr. LAUREN Bowman Measurements Intervals [place] Rate: 57 P: 44 [place]: 168 QRS: 34 QRSD: 103 T: -12 QT: 426 QTc: 415 Interpretive Statements Sinus bradycardia Borderline T abnormalities, inferior leads Electronically Signed On 04-10-2025 18:44:[address] LAUREN Bowman Please click the below link to view image of tracing.
[2025-04-10 14:52] LABS: MEAN PLATELET VOLUME 7.6 FL (7.4-10.4); PRE OP HEMATOCRIT 43.2 % (42.0-52.0); PRE OP HEMOGLOBIN 15.2 g/dL (14.0-17.9); PRE OP PLATELET COUNT 159 X10'3 (140-440); PRE OP WHITE BLOOD COUNT 5.8 10'3 (4.8-10.8); RED CELL DISTRIBUTION WIDTH 14.9 % (11.5-14.5)
[2025-04-10 15:06] LABS: CREATININE 1.07 MG/DL (0.60-1.10); PRE OP ALT 16 U/L (30-65); PRE OP AST 17 U/L (10-37); PRE OP BILIRUB, TOTAL 0.9 MG/DL (0.0-1.0); PRE OP GLUCOSE 80 MG/DL (70-104); TOTAL CARBON DIOXIDE 33.5 MMOL/L (24-32); eGFR 70 ML/MIN
[2025-04-10 15:12] LABS: PRE OP ANION GAP 5 (8-16); PRE OP POTASSIUM 3.6 MMOL/L (3.4-5.1); PRE OP SODIUM 148 MMOL/L (135-145)
[2025-04-11] VITALS (12 sets, daily range): BP systolic 93–178; BP diastolic 51–98; PULSE 50–61; RESP 13–16; TEMP 98.2; O2SAT 95–98
[~2025-04-11] VITALS: Ht 177.8 cm; Wt 94.2 kg
[~2025-04-11 05:41] MED LIST changes: -ASPI-1265 PO; -ATOR10TA87 PO; -FURO-149 PO; -IBUP-2417 PO; -NEOM28OI32 TP; -Potassium PO
[2025-04-11] MEDS: ringers solution, lacted 1,000 ML IV SCH (06:10)
[2025-04-11] MEDS: DOCUMENT DATE & TIME OF BETA-BLOCKER PO ONE (06:12)
[2025-04-11] MEDS: ceFAZolin 2gm/dext,iso 50mL 50 ML IV ONE (06:12)
[2025-04-11] MEDS ORDERED: triamcinolone acetonide 40mg/ml inj ONE (06:43)
[2025-04-11] MEDS ORDERED: BUPIVAcaine/PF 2.5mg/ml (0.25%) 10ml vial ONE (06:44)
[2025-04-11] MEDS ORDERED: cloNIDine hcl/PF 100mcg/ml inj ONE (06:54)
[2025-04-11] MEDS ORDERED: HYDROmorphone/PF 0.2 MG/ML SYRINGE IV PRN ×2 (07:00)
[2025-04-11] MEDS ORDERED: labetalol 20mg/4ml (5mg/ml) syringe IV PRN (07:00)
[2025-04-11] MEDS ORDERED: morphine 4 MG/ML inj SYRINge IV PRN (07:00)
[2025-04-11] MEDS ORDERED: ringers solution, lacted 1,000 ML IV SCH (07:00)
[2025-04-11] MEDS ORDERED: hydrALAZINE 20mg/ml inj. IV PRN (07:00)
[2025-04-11] MEDS ORDERED: ondansetron/PF 4mg/2ml inj IV PRN (07:00)
[2025-04-11] MEDS ORDERED: acetaminophen 1,000mg/100ml IV 100 ML IV PRN (07:00)
[2025-04-11] MEDS ORDERED: fentaNYL/PF 50MCG/1 ML 2ML syringe ONE (07:04)
[2025-04-11] MEDS ORDERED: dexamethasone sod phosphate 4mg/ml inj. ONE (07:23)
[2025-04-11] MEDS ORDERED: LIDOcaine 2% (20mg/ml) 5ml vial ONE (07:23)
[2025-04-11] MEDS ORDERED: ondansetron/PF 4mg/2ml inj ONE (07:23)
[2025-04-11] MEDS ORDERED: ROPIVAcaine 0.5% (5mg/ml) 30ml vial ONE (07:23)
[2025-04-11] MEDS ORDERED: midazolam 1 mg/ML 2ml injection ONE (07:23)
[2025-04-11] MEDS ORDERED: propofol inj 20 ML IV ONE (07:23)
[2025-04-11] MEDS: BUPIVAcaine/PF 2.5mg/ml (0.25%) 10ml vial IJ ONE (07:30)
--- NOTE | 2025-04-11 07:57 | OPERATIVE REPORT ---
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 POSTOPERATIVE DIAGNOSIS: Arthrofibrosis right knee status post total knee arthroplasty. PROCEDURE PERFORMED: * Manipulation under anesthesia. * Intraarticular steroid injection. SURGEON: Ryland Gilmore MD CHURN OPERATOR MARGARINE: None. ANESTHESIA: General anesthesia with an adductor canal block. FINDINGS: The patient was found to have 0-60 degrees range of motion of the knee. COMPLICATIONS: There were no complications. IMPLANTS USED: None. BLOOD LOSS: No. SPECIMENS REMOVED: No specimen was removed. DESCRIPTION OF PROCEDURE: The patient was taken to the operating room after I obtained informed consent discussing the indications, risks, benefits, limitations, and potential complications including periarticular fracture. He understood the risks and agreed to proceed with surgery. I assigned his right knee. He was given prophylactic intravenous antibiotics per protocol, taken to the operating room and given a general anesthetic, as well as an adductor canal block by the anesthesiologist. After an adequate level of anesthesia was accomplished, I took his knee through a range of motion. Initially, he had only 0-60 degrees of knee flexion. Then, gentle manipulation with releasing of adhesions slowly. The knee was able to be flexed to 120 degrees range of motion, possibly 125. This is within 5 degrees of his left knee range of motion. The knee remained stable. There were no other concerns. The lateral aspect of his knee was now prepped with a sterile Hibiclens alcohol prep solution. An intraarticular injection from the lateral aspect of the patella into the knee joint was accomplished with 10 mL of ropivacaine/Marcaine and 1 mL of 40 mg of Kenalog. The knee was taken through several ranges of motion to distribute the medication intraarticularly. A bandage was applied over the injection site. The patient was now aroused and transferred to the [place] and recovery room in stable condition. There were no apparent perioperative complications. No sponge count was appropriate as there was no incision. Ryland Gilmore MD TID: [id number] RECEIPT: [id number] BEBA/ERICA
== END 2025-04-11 07:40 | disposition home or self-care (01) ==
LOC: PAS 05:41
PROVIDERS: ATTEND Orthopaedic Surgery
DX: M24.661 Ankylosis, right knee (principal); G89.18 Other acute postprocedural pain; I10 Essential (primary) hypertension; E78.5 Hyperlipidemia, unspecified; Z79.899 Other long term (current) drug therapy; Z90.89 Acquired absence of other organs; Z98.890 Other specified postprocedural states
CPT/HCPCS: 20610; 27570; 36415; 64447; 80053; 85025; 93005; J0735; J1100; J2003; J2250; J2405; J2704; J2795; J3010; J3301; J3490; J7120; Z7506; Z7512; A4618